=== PATIENT | female | born 1975 | race American Indian/Alaskan Native ===

== ENCOUNTER 2020-02-28 14:00 | Emergency (ER) | payer OTHER ==
[2020-02-28 14:36] VITALS: BP 175/105
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
== END 2020-02-28 15:17 | disposition home or self-care (01) ==
LOC: ED 14:00
DX: S39.012A Strain of muscle, fascia and tendon of lower back, initial encounter (principal); V49.49XA Driver injured in collision with other motor vehicles in traffic accident, initial encounter; Y93.89 Activity, other specified; Y92.488 Other paved roadways as the place of occurrence of the external cause; Y99.8 Other external cause status
CPT/HCPCS: 99282